=== PATIENT | female | born 1935 | race Caucasian/White ===

== ENCOUNTER 2024-02-23 10:19 | Inpatient (IN) | payer OTHER ==
[2024-02-23 11:51] LABS: HEMATOCRIT 43.3 % (32.4-45.2); HEMOGLOBIN 14.1 GM/dL (10.7-15.3); MCHC 32.5 g/dl (32.0-36.0); MEAN CELL VOLUME 92.1 fl (80-96); MEAN PLT VOLUME 10.6 fl (7.5-11.1); PLATELET COUNT 216 10^3/uL (134-434); RBC 4.71 M/mm3 (3.60-5.2); RDW 14.2 % (11.6-15.6); WHITE BLOOD COUNT 18.2 K/mm3 (4.0-10.0)
[2024-02-23 11:54] LABS: EPI CELLS 5 /uL (0-25.1); HYALINE CASTS 1 /uL (0-3.1); PH,URINE 5.5 (5.0-8.0); URINE APPEARANCE CLEAR; URINE BACTERIA 2 /uL (0-1359); URINE BILIRUBIN NEGATIVE (NEGATIVE); URINE COLOR YELLOW; URINE GLUCOSE (UA) NEGATIVE (NEGATIVE); URINE KETONE NEGATIVE (NEGATIVE); URINE LEUK ESTERASE NEGATIVE (NEGATIVE); URINE NITRITE NEGATIVE (NEGATIVE); URINE PROTEIN 1+ (NEGATIVE); URINE RBC 84 /uL (0-23.9); URINE UROBILINOGEN 0.2 mg/dL (0.2-1.0); URINE WBC 10 /uL (0-25.8)
[2024-02-23 12:00] LABS: INR 1.78 (0.83-1.09); PROTHROMBIN TIME (PATIENT) 19.8 SEC (9.7-13.0)
[2024-02-23 12:03] LABS: ACTIVATED PTT 46.8 SECONDS (25.2-36.5)
[2024-02-23 12:13] LABS: CHLORIDE 96 mmol/L (98-107); SODIUM 143 mmol/L (136-145)
[2024-02-23 12:15] LABS: ALBUMIN 2.7 g/dl (3.4-5.0); BLOOD UREA NITROGEN 24.8 mg/dL (7-18); CALCIUM 8.8 mg/dL (8.5-10.1); CO2 37 mmol/L (21-32); GLUCOSE,RANDOM 164 mg/dL (74-106); MAGNESIUM 1.2 mg/dL (1.8-2.4)
[2024-02-23 12:18] LABS: CREATININE 1.1 mg/dL (0.55-1.3); SGOT/AST 28 U/L (15-37); SGPT/ALT 14 U/L (13-61)
[2024-02-23 12:20] LABS: BILIRUBIN,TOTAL 0.6 mg/dL (0.2-1); TOT PROT 7.7 g/dl (6.4-8.2)
[2024-02-23 12:21] LABS: ALK PHOS 145 U/L (45-117)
[2024-02-23 12:23] LABS: ANION GAP 10 mmol/L (4-13); POTASSIUM 2.6 mmol/L (3.5-5.1)
[2024-02-23] MEDS: MAGNESIUM SULF 50% (8.12 MEQ/2 ML-1 GM VIAL) IVPB ONE (12:30)
[2024-02-23] MEDS ORDERED: MAGNESIUM SULFATE IN WATER 2 GM/50 ML IVPB IVPB ONE (12:34)
[2024-02-23] MEDS ORDERED: POTASSIUM CHLORIDE ORAL LIQUID 20 MEQ/15 ML ONE (12:34)
[2024-02-23 12:38] LABS: ANISOCYTOSIS 0; HELMET CELLS 0; HOWELL-JOLLY BODIES 0; MACROCYTOSIS 0; OVALOCYTE 0; ROULEAU 0; SICKELED CELLS 0; TARGET CELLS 0; TEAR DROP CELLS 0; TOXIC GRANULATION 0
[2024-02-23] MEDS: POTASSIUM CHLORIDE ORAL LIQUID 20 MEQ/15 ML PO ONE (12:40)
[2024-02-23] MEDS: KCL 10 MEQ IVPB 10 MEQ/100 ML INFUS.BAG IVPB SCH (13:00)
[2024-02-23] MEDS: SODIUM CHLORIDE 1,000 ML IV STA (13:00)
[2024-02-23] MEDS ORDERED: KCL 10 MEQ IVPB 10 MEQ/100 ML INFUS.BAG IVPB ONE ×3 (14:23→17:28)
[2024-02-23] MEDS ORDERED: ALBUTEROL SO4 0.083% IH SOL 2.5 MG/3 ML VIAL.NEB. NEB PRN (14:52)
[2024-02-23] MEDS ORDERED: ACETAMINOPHEN 325 MG TABLET (FP) PO PRN (14:52)
[2024-02-23] MEDS: INSULIN ASPART SLIDING SCALE (NOVOLOG) 1 VIAL SQ SCH (17:38)
[2024-02-23] MEDS ORDERED: PATIENT'S OWN MEDICATION (NON-FORMULARY) (Prednisolone Acetate/Pf [Prednisolone Acet 1% Ey OD SCH (18:00)
[2024-02-23 18:56] LABS: POTASSIUM 4.8 mmol/L (3.5-5.1)
[2024-02-23 18:57] LABS: CALCIUM 7.7 mg/dL (8.5-10.1)
[2024-02-23 18:58] LABS: BLOOD UREA NITROGEN 21.8 mg/dL (7-18)
[2024-02-23 19:01] LABS: CREATININE 0.9 mg/dL (0.55-1.3)
[2024-02-23] MEDS: ATORVASTATIN CA 40 MG TABLET (FP) PO SCH (21:56)
[2024-02-23] MEDS: APIXABAN 5 MG TABLET PO SCH (21:57)
[2024-02-23] MEDS ORDERED: PATIENT'S OWN MEDICATION (NON-FORMULARY) (Atropine Sulfate/Pf [Atropine 1% Eye Drops] 1 EA OD SCH (22:00)
[2024-02-23] MEDS ORDERED: TIMOLOL 0.5% OPHTHALMIC SOL 5 ML BOTTLE OD SCH (22:00)
[2024-02-23] MEDS ORDERED: ZINC OXIDE 20% TP SCH (22:00)
[2024-02-23] MEDS: DORZOLAMIDE HCL/TIMOLOL OPHTHALMIC SOLUTION 10 ML BOTTLE OD SCH (22:48)
[2024-02-23] MEDS: prednisoLONE ACETATE 1% OPHTH SUSP 5 ML BOTTLE OD SCH (22:49)
[2024-02-23] MEDS: BRIMONIDINE TARTRATE 0.15% OPHTHALMIC 5 ML BOTTLE OD SCH (22:49)
[2024-02-23] MEDS: ATROPINE SO4 1% OPHTH SOLN 5 ML BOTTLE OD SCH (22:49)
[2024-02-23] MEDS: LIDOCAINE PATCH REMOVAL MC SCH (22:59)
[2024-02-23] MEDS: ZINC OXIDE 20% TOPICAL OINTMENT 30 GM TUBE TP SCH (23:17)
[2024-02-24] MEDS: DORZOLAMIDE 2% HCL OPHTHALMIC SOLUTION 10 ML BOTTLE OD SCH (00:23)
[2024-02-24] MEDS: glipiZIDE-XL 5 MG TAB.ER.24 PO SCH (06:11)
[2024-02-24] MEDS: sitaGLIPtin PHOSPHATE 50 MG TABLET PO SCH (06:11)
[2024-02-24 09:50] LABS: HEMATOCRIT 38.8 % (32.4-45.2); HEMOGLOBIN 12.4 GM/dL (10.7-15.3); MCH 29.7 pg (25.7-33.7); MCHC 32.1 g/dl (32.0-36.0); MEAN CELL VOLUME 92.6 fl (80-96); MEAN PLT VOLUME 10.6 fl (7.5-11.1); RBC 4.19 M/mm3 (3.60-5.2); RDW 14.3 % (11.6-15.6); WHITE BLOOD COUNT 20.5 K/mm3 (4.0-10.0)
[2024-02-24 10:06] LABS: CHLORIDE 102 mmol/L (98-107); SODIUM 146 mmol/L (136-145)
[2024-02-24 10:07] LABS: CALCIUM 8.1 mg/dL (8.5-10.1)
[2024-02-24 10:08] LABS: BLOOD UREA NITROGEN 17.6 mg/dL (7-18); CO2 37 mmol/L (21-32); GLUCOSE,RANDOM 112 mg/dL (74-106); MAGNESIUM 1.4 mg/dL (1.8-2.4)
[2024-02-24 10:10] LABS: CREATININE 0.8 mg/dL (0.55-1.3); PHOSPHOROUS 2.6 mg/dL (2.5-4.9)
[2024-02-24 10:11] LABS: ANION GAP 7 mmol/L (4-13); POTASSIUM 2.5 mmol/L (3.5-5.1)
[2024-02-24] MEDS: amLODIPine BESYLATE 5 MG TABLET (FP) PO SCH (10:17)
[2024-02-24] MEDS: SERTRALINE HCL 50 MG TABLET (FP) PO SCH (10:17)
[2024-02-24] MEDS: PANTOPRAZOLE 40 MG TABLET PO SCH (10:17)
[2024-02-24 10:34] LABS: ANISOCYTOSIS 0; HELMET CELLS 0; HOWELL-JOLLY BODIES 0; MACROCYTOSIS 0; OVALOCYTE 0; ROULEAU 0; SICKELED CELLS 0; TARGET CELLS 0; TEAR DROP CELLS 0; TOXIC GRANULATION 0
[2024-02-24 10:36] LABS: PLATELET COUNT 189 10^3/uL (134-434)
[2024-02-24 10:50] LABS: ALLENS TEST POSITIVE; ARTERIAL BLD GAS O2 SATURATION 95.8 % (95-98); ARTERIAL BLOOD GAS BASE EXCESS 7.1 mmol/L (-2-2); ARTERIAL BLOOD GAS PO2 86.3 mmHg (80-100); ARTERIAL BLOOD GAS pH 7.348 (7.350-7.450)
[2024-02-24] MEDS: LIDOCAINE 4% PATCH TP SCH (11:19)
[2024-02-24] MEDS: POTASSIUM CHLORIDE ORAL LIQUID 20 MEQ/15 ML PO ONE (11:25)
[2024-02-24] MEDS: KCL 10 MEQ IVPB 10 MEQ/100 ML INFUS.BAG IVPB SCH ×2 (11:25→21:23)
[2024-02-24] MEDS: VANCOMYCIN ORAL SOLUTION 125 MG/2.5 ML PO SCH (14:21)
[2024-02-24] MEDS ORDERED: VANCOMYCIN ORAL SOLUTION 125 MG/2.5 ML PO SCH (18:00)
[2024-02-24 20:52] LABS: POTASSIUM 2.5 mmol/L (3.5-5.1)
[2024-02-25 04:56] LABS: HEMATOCRIT 36.7 % (32.4-45.2); HEMOGLOBIN 11.9 GM/dL (10.7-15.3); MCH 29.8 pg (25.7-33.7); MCHC 32.4 g/dl (32.0-36.0); MEAN PLT VOLUME 9.8 fl (7.5-11.1); PLATELET COUNT 179 10^3/uL (134-434); RBC 3.99 M/mm3 (3.60-5.2); RDW 14.5 % (11.6-15.6); WHITE BLOOD COUNT 25.6 K/mm3 (4.0-10.0)
[2024-02-25 05:13] LABS: CHLORIDE 101 mmol/L (98-107); SODIUM 144 mmol/L (136-145)
[2024-02-25 05:15] LABS: CALCIUM 7.8 mg/dL (8.5-10.1); CO2 35 mmol/L (21-32)
[2024-02-25 05:16] LABS: BLOOD UREA NITROGEN 15.6 mg/dL (7-18); GLUCOSE,RANDOM 221 mg/dL (74-106)
[2024-02-25 05:18] LABS: CREATININE 0.9 mg/dL (0.55-1.3)
[2024-02-25 06:04] LABS: ANION GAP 8 mmol/L (4-13); POTASSIUM 2.9 mmol/L (3.5-5.1)
[2024-02-25 06:49] LABS: ANISOCYTOSIS 1+; MACROCYTOSIS 0; OVALOCYTE 1+
[2024-02-25] MEDS: KCL 10 MEQ IVPB 10 MEQ/100 ML INFUS.BAG IVPB SCH (07:00)
[2024-02-25] MEDS: POTASSIUM CHLORIDE ORAL LIQUID 20 MEQ/15 ML PO ONE ×2 (07:00→10:45)
[2024-02-25 10:24] LABS: HEMATOCRIT 38.4 % (32.4-45.2); HEMOGLOBIN 12.3 GM/dL (10.7-15.3); MCH 29.5 pg (25.7-33.7); MCHC 32.1 g/dl (32.0-36.0); MEAN PLT VOLUME 10.3 fl (7.5-11.1); PLATELET COUNT 188 10^3/uL (134-434); RBC 4.17 M/mm3 (3.60-5.2); RDW 14.5 % (11.6-15.6); WHITE BLOOD COUNT 23.4 K/mm3 (4.0-10.0)
[2024-02-25 10:42] LABS: POTASSIUM 3.6 mmol/L (3.5-5.1)
[2024-02-25 10:51] LABS: ALBUMIN 2.3 g/dl (3.4-5.0); CALCIUM 8.1 mg/dL (8.5-10.1); MAGNESIUM 1.1 mg/dL (1.8-2.4)
[2024-02-25 10:54] LABS: CREATININE 0.9 mg/dL (0.55-1.3)
[2024-02-25 10:56] LABS: BILIRUBIN,TOTAL 0.4 mg/dL (0.2-1)
[2024-02-25 10:57] LABS: TOT PROT 6.3 g/dl (6.4-8.2)
[2024-02-25 11:15] LABS: ANISOCYTOSIS 0; MACROCYTOSIS 0
[2024-02-25] MEDS: MAGNESIUM 2GM/50ML STERILE WATER IVPB IVPB ONE ×2 (11:58→17:08)
[2024-02-25 16:39] VITALS: BMI 24.6
[2024-02-25] MEDS: BANATROL PLUS POWDER PACKET PO SCH (23:06)
[2024-02-26] MEDS: VANCOMYCIN 250 MG/5 ML ORAL SOLUTION (RESTRICTED TO ID ONLY) PO SCH (06:41)
[2024-02-26 08:24] LABS: HEMATOCRIT 38.3 % (32.4-45.2); HEMOGLOBIN 12.5 GM/dL (10.7-15.3); MCHC 32.7 g/dl (32.0-36.0); MEAN CELL VOLUME 91.8 fl (80-96); MEAN PLT VOLUME 9.9 fl (7.5-11.1); PLATELET COUNT 192 10^3/uL (134-434); RBC 4.17 M/mm3 (3.60-5.2); RDW 14.8 % (11.6-15.6); WHITE BLOOD COUNT 19.9 K/mm3 (4.0-10.0)
[2024-02-26 08:37] LABS: ALBUMIN 2.4 g/dl (3.4-5.0); BLOOD UREA NITROGEN 15.3 mg/dL (7-18); CALCIUM 8.3 mg/dL (8.5-10.1); MAGNESIUM 2.1 mg/dL (1.8-2.4)
[2024-02-26 08:40] LABS: CREATININE 0.8 mg/dL (0.55-1.3); PHOSPHOROUS 2.6 mg/dL (2.5-4.9)
[2024-02-26 08:42] LABS: BILIRUBIN,TOTAL 0.5 mg/dL (0.2-1); TOT PROT 6.3 g/dl (6.4-8.2)
[2024-02-26 09:17] LABS: ANISOCYTOSIS 2+; MACROCYTOSIS 0; OVALOCYTE 1+
[2024-02-26] MEDS ORDERED: MAGNESIUM SULF 50% (8.12 MEQ/2 ML-1 GM VIAL) IVPB ONE (09:57)
[2024-02-26] MEDS: ZINC OXIDE 20% TOPICAL OINTMENT 30 GM TUBE TP SCH (11:43)
[2024-02-26] MEDS: POTASSIUM CHLORIDE ORAL LIQUID 20 MEQ/15 ML PO ONE (14:38)
[2024-02-26] MEDS: MAGNESIUM 2GM/50ML STERILE WATER IVPB IVPB ONE (14:40)
[2024-02-26] MEDS ORDERED: ATORVASTATIN CA 20 MG TABLET (FP) ONE (22:15)
[2024-02-27 07:30] LABS: HEMATOCRIT 38.3 % (32.4-45.2); HEMOGLOBIN 12.2 GM/dL (10.7-15.3); MCH 29.6 pg (25.7-33.7); MCHC 31.8 g/dl (32.0-36.0); MEAN CELL VOLUME 93.2 fl (80-96); MEAN PLT VOLUME 9.9 fl (7.5-11.1); PLATELET COUNT 167 10^3/uL (134-434); RBC 4.11 M/mm3 (3.60-5.2); RDW 14.4 % (11.6-15.6); WHITE BLOOD COUNT 24.4 K/mm3 (4.0-10.0)
[2024-02-27 07:44] LABS: ALBUMIN 2.1 g/dl (3.4-5.0); BLOOD UREA NITROGEN 17.7 mg/dL (7-18); MAGNESIUM 2.3 mg/dL (1.8-2.4)
[2024-02-27 07:47] LABS: CREATININE 0.8 mg/dL (0.55-1.3); PHOSPHOROUS 2.6 mg/dL (2.5-4.9)
[2024-02-27 07:49] LABS: BILIRUBIN,TOTAL 0.4 mg/dL (0.2-1)
[2024-02-27] MEDS ORDERED: POTASSIUM CHLORIDE ORAL LIQUID 20 MEQ/15 ML PO ONE (08:40)
[2024-02-27 09:32] LABS: ANISOCYTOSIS 0; MACROCYTOSIS 0; OVALOCYTE 1+
[2024-02-27] MEDS: POTASSIUM CHLORIDE ORAL LIQUID 20 MEQ/15 ML PO ONE (10:55)
[2024-02-27] MEDS: VANCOMYCIN 250 MG/5 ML ORAL SOLUTION (RESTRICTED TO ID ONLY) PO SCH (17:52)
[2024-02-27] MEDS: LACTOBACILLUS ACIDOPHILUS 1 TABLET PO SCH (21:46)
[2024-02-27] MEDS: MELATONIN 5 MG TABLETS PO PRN (23:45)
[2024-02-28 07:57] LABS: CHLORIDE 102 mmol/L (98-107); SODIUM 142 mmol/L (136-145)
[2024-02-28 07:58] LABS: POTASSIUM 2.8 mmol/L (3.5-5.1)
[2024-02-28 08:01] LABS: HEMATOCRIT 36.7 % (32.4-45.2); HEMOGLOBIN 11.8 GM/dL (10.7-15.3); MCH 30.1 pg (25.7-33.7); MCHC 32.1 g/dl (32.0-36.0); MEAN CELL VOLUME 93.6 fl (80-96); MEAN PLT VOLUME 9.7 fl (7.5-11.1); PLATELET COUNT 145 10^3/uL (134-434); RBC 3.93 M/mm3 (3.60-5.2); RDW 14.4 % (11.6-15.6); WHITE BLOOD COUNT 22.1 K/mm3 (4.0-10.0)
[2024-02-28 08:03] LABS: ALBUMIN 2.1 g/dl (3.4-5.0); ANION GAP 6 mmol/L (4-13); BLOOD UREA NITROGEN 16.6 mg/dL (7-18); CALCIUM 8.1 mg/dL (8.5-10.1); CO2 33 mmol/L (21-32); GLUCOSE,RANDOM 212 mg/dL (74-106); MAGNESIUM 1.8 mg/dL (1.8-2.4)
[2024-02-28 08:06] LABS: CREATININE 0.8 mg/dL (0.55-1.3); PHOSPHOROUS 2.8 mg/dL (2.5-4.9); SGOT/AST 13 U/L (15-37); SGPT/ALT 8 U/L (13-61)
[2024-02-28 08:07] LABS: BILIRUBIN,TOTAL 0.4 mg/dL (0.2-1); TOT PROT 5.6 g/dl (6.4-8.2)
[2024-02-28 08:51] LABS: ANISOCYTOSIS 0; MACROCYTOSIS 0
[2024-02-28 09:04] LABS: ALK PHOS 99 U/L (45-117)
[2024-02-28] MEDS: POTASSIUM CHLORIDE TABS 20 MEQ TABLET.ER (FP) PO ONE (10:11)
[2024-02-28 17:49] LABS: CALCIUM 8.1 mg/dL (8.5-10.1); POTASSIUM 3.1 mmol/L (3.5-5.1)
[2024-02-28 17:54] LABS: CREATININE 0.8 mg/dL (0.55-1.3)
[2024-02-29] MEDS: POTASSIUM CHLORIDE ORAL LIQUID 20 MEQ/15 ML PO ONE (02:23)
[2024-02-29] MEDS: KCL 10 MEQ IVPB 10 MEQ/100 ML INFUS.BAG IVPB SCH (03:12)
[2024-02-29 07:20] LABS: HEMATOCRIT 38.4 % (32.4-45.2); HEMOGLOBIN 12.2 GM/dL (10.7-15.3); MCH 29.5 pg (25.7-33.7); MCHC 31.7 g/dl (32.0-36.0); MEAN CELL VOLUME 93.2 fl (80-96); PLATELET COUNT 164 10^3/uL (134-434); RBC 4.12 M/mm3 (3.60-5.2); RDW 14.7 % (11.6-15.6); WHITE BLOOD COUNT 27.9 K/mm3 (4.0-10.0)
[2024-02-29 07:39] LABS: ALBUMIN 2.2 g/dl (3.4-5.0); BLOOD UREA NITROGEN 16.4 mg/dL (7-18); CALCIUM 8.2 mg/dL (8.5-10.1); MAGNESIUM 1.3 mg/dL (1.8-2.4)
[2024-02-29 07:42] LABS: BILIRUBIN,TOTAL 0.4 mg/dL (0.2-1); CREATININE 0.8 mg/dL (0.55-1.3); PHOSPHOROUS 2.3 mg/dL (2.5-4.9)
[2024-02-29 08:54] LABS: ANISOCYTOSIS 0; MACROCYTOSIS 0
[2024-02-29] MEDS: POTASSIUM CHLORIDE ORAL LIQUID 20 MEQ/15 ML PO SCH (10:58)
[2024-02-29] MEDS: BANATROL PLUS POWDER PACKET PO SCH (14:49)
[2024-02-29] MEDS: MAGNESIUM SULF 50% (8.12 MEQ/2 ML-1 GM VIAL) IVPB SCH ×2 (17:44→21:41)
[2024-02-29] MEDS: POTASSIUM PHOSPHATE 30 MM in SODIUM CHLORIDE 500 ML IVPB ONE (19:17)
[2024-02-29] MEDS: MECLIZINE HCL 12.5 MG TABLET PO PRN (21:13)
[2024-03-01 07:54] LABS: HEMATOCRIT 38.6 % (32.4-45.2); HEMOGLOBIN 12.6 GM/dL (10.7-15.3); MCH 29.9 pg (25.7-33.7); MCHC 32.6 g/dl (32.0-36.0); MEAN CELL VOLUME 91.6 fl (80-96); MEAN PLT VOLUME 9.5 fl (7.5-11.1); PLATELET COUNT 169 10^3/uL (134-434); RBC 4.22 M/mm3 (3.60-5.2); RDW 14.8 % (11.6-15.6)
[2024-03-01 07:59] LABS: CHLORIDE 105 mmol/L (98-107); SODIUM 145 mmol/L (136-145)
[2024-03-01 08:06] LABS: ALBUMIN 2.1 g/dl (3.4-5.0); CALCIUM 7.9 mg/dL (8.5-10.1)
[2024-03-01 08:07] LABS: BLOOD UREA NITROGEN 13.5 mg/dL (7-18); CO2 33 mmol/L (21-32); GLUCOSE,RANDOM 226 mg/dL (74-106); MAGNESIUM 2.5 mg/dL (1.8-2.4)
[2024-03-01 08:09] LABS: CREATININE 0.6 mg/dL (0.55-1.3); SGOT/AST 15 U/L (15-37); SGPT/ALT 11 U/L (13-61)
[2024-03-01 08:10] LABS: PHOSPHOROUS 3.4 mg/dL (2.5-4.9)
[2024-03-01 08:11] LABS: BILIRUBIN,TOTAL 0.5 mg/dL (0.2-1)
[2024-03-01 08:12] LABS: ALK PHOS 101 U/L (45-117)
[2024-03-01 08:32] LABS: ANION GAP 8 mmol/L (4-13); POTASSIUM 2.8 mmol/L (3.5-5.1)
[2024-03-01 10:05] LABS: ANISOCYTOSIS 0; MACROCYTOSIS 0; OVALOCYTE 1+
[2024-03-01] MEDS: LIDOCAINE 4% PATCH TP SCH (10:22)
[2024-03-01] MEDS: POTASSIUM CHLORIDE ORAL LIQUID 20 MEQ/15 ML PO SCH (13:20)
[2024-03-01] MEDS: KCL 10 MEQ IVPB 10 MEQ/100 ML INFUS.BAG IVPB SCH (13:20)
[2024-03-01] MEDS: FIDAXOMICIN 200 MG TABLET PO SCH (16:10)
[2024-03-02 07:58] LABS: HEMATOCRIT 37.8 % (32.4-45.2); HEMOGLOBIN 11.7 GM/dL (10.7-15.3); MCH 29.3 pg (25.7-33.7); MCHC 31.1 g/dl (32.0-36.0); MEAN CELL VOLUME 94.2 fl (80-96); MEAN PLT VOLUME 9.8 fl (7.5-11.1); PLATELET COUNT 163 10^3/uL (134-434); RBC 4.01 M/mm3 (3.60-5.2); RDW 14.7 % (11.6-15.6)
[2024-03-02 08:16] LABS: POTASSIUM 4.7 mmol/L (3.5-5.1)
[2024-03-02 08:19] LABS: CALCIUM 8.3 mg/dL (8.5-10.1); MAGNESIUM 1.7 mg/dL (1.8-2.4)
[2024-03-02 08:21] LABS: CREATININE 0.7 mg/dL (0.55-1.3)
[2024-03-02 08:24] LABS: BILIRUBIN,TOTAL 0.4 mg/dL (0.2-1); TOT PROT 5.5 g/dl (6.4-8.2)
[2024-03-02 08:40] LABS: WHITE BLOOD COUNT 36.5 K/mm3 (4.0-10.0)
[2024-03-02 09:41] LABS: ANISOCYTOSIS 0; MACROCYTOSIS 0
[2024-03-02] MEDS: NAPH,MB-DB/K PH,MBDB POWDER PACKET PO ONE (10:36)
[2024-03-02] MEDS: MAGNESIUM 2GM/50ML STERILE WATER IVPB IVPB ONE (10:38)
[2024-03-02] MEDS: VANCOMYCIN 250 MG/5 ML ORAL SOLUTION (RESTRICTED TO ID ONLY) PO SCH (13:31)
[2024-03-02] MEDS: ACETAMINOPHEN 1000 MG/100 ML BAG IVPB ONE (14:07)
[2024-03-02] MEDS: SODIUM PHOSPHATE - 30 MM in SODIUM CHLORIDE 500 ML IVPB ONE (14:41)
[2024-03-03 08:10] LABS: HEMATOCRIT 35.9 % (32.4-45.2); HEMOGLOBIN 11.3 GM/dL (10.7-15.3); MCH 29.7 pg (25.7-33.7); MCHC 31.4 g/dl (32.0-36.0); MEAN CELL VOLUME 94.4 fl (80-96); MEAN PLT VOLUME 10.4 fl (7.5-11.1); PLATELET COUNT 174 10^3/uL (134-434); RDW 14.9 % (11.6-15.6)
[2024-03-03 08:21] LABS: POTASSIUM 4.3 mmol/L (3.5-5.1)
[2024-03-03 08:29] LABS: ALBUMIN 1.9 g/dl (3.4-5.0); BLOOD UREA NITROGEN 11.8 mg/dL (7-18); CALCIUM 7.9 mg/dL (8.5-10.1); MAGNESIUM 1.7 mg/dL (1.8-2.4)
[2024-03-03 08:31] LABS: WHITE BLOOD COUNT 34.8 K/mm3 (4.0-10.0)
[2024-03-03 08:32] LABS: CREATININE 0.6 mg/dL (0.55-1.3); PHOSPHOROUS 3.3 mg/dL (2.5-4.9)
[2024-03-03 08:34] LABS: BILIRUBIN,TOTAL 0.5 mg/dL (0.2-1); TOT PROT 5.6 g/dl (6.4-8.2)
[2024-03-03] MEDS: MAGNESIUM 2GM/50ML STERILE WATER IVPB IVPB ONE (09:32)
[2024-03-03 09:50] LABS: ANISOCYTOSIS 0; MACROCYTOSIS 0
[2024-03-03] MEDS ORDERED: MAGNESIUM SULF 50% (8.12 MEQ/2 ML-1 GM VIAL) IVPB ONE (10:15)
[2024-03-03] MEDS: ACETAMINOPHEN 1000 MG/100 ML BAG IVPB PRN (11:23)
[2024-03-03] MEDS: FAMOTIDINE 20 MG/50 ML IVPB 20 MG/50 ML MG IVPB SCH (14:27)
[2024-03-03] MEDS: VANCOMYCIN 500 MG VIAL (RESTRICTED TO ID ONLY) RC SCH (16:21)
[2024-03-03] MEDS: morphine CARPU-JECT 4 MG/1 ML DISP.SYRIN IVPUSH ONE (17:10)
[2024-03-04 09:02] LABS: MCHC 31.4 g/dl (32.0-36.0); MEAN CELL VOLUME 92.3 fl (80-96); MEAN PLT VOLUME 10.1 fl (7.5-11.1); PLATELET COUNT 198 10^3/uL (134-434); RBC 3.79 M/mm3 (3.60-5.2); RDW 15.2 % (11.6-15.6)
[2024-03-04 09:19] LABS: ALBUMIN 1.8 g/dl (3.4-5.0); CALCIUM 7.9 mg/dL (8.5-10.1)
[2024-03-04 09:20] LABS: BLOOD UREA NITROGEN 13.7 mg/dL (7-18); MAGNESIUM 1.7 mg/dL (1.8-2.4)
[2024-03-04 09:22] LABS: CREATININE 0.6 mg/dL (0.55-1.3); PHOSPHOROUS 2.4 mg/dL (2.5-4.9)
[2024-03-04 09:23] LABS: BILIRUBIN,TOTAL 0.4 mg/dL (0.2-1); TOT PROT 5.1 g/dl (6.4-8.2)
[2024-03-04] MEDS: KCL 10 MEQ IVPB 10 MEQ/100 ML INFUS.BAG IVPB SCH (10:03)
[2024-03-04 11:56] LABS: ANISOCYTOSIS 1+; MACROCYTOSIS 0; OVALOCYTE 1+; TEAR DROP CELLS 0
[2024-03-04 11:58] LABS: PLATELET ESTIMATE ADEQUATE
[2024-03-04] MEDS ORDERED: NAPH,MB-DB/K PH,MBDB POWDER PACKET PO ONE (14:29)
[2024-03-04] MEDS ORDERED: AMINO ACIDS 4.25%/D5W 1,000 ML IV SCH (15:15)
[2024-03-04] MEDS: MAGNESIUM 2GM/50ML STERILE WATER IVPB IVPB ONE (15:16)
[2024-03-04] MEDS: POTASSIUM PHOSPHATE 15 MM in SODIUM CHLORIDE 250 ML IVPB ONE (17:20)
[2024-03-04] MEDS: ACETAMINOPHEN 1000 MG/100 ML BAG IVPB PRN (18:06)
[2024-03-04] MEDS: POTASSIUM CHLORIDE 20 MEQ in AMINO ACIDS 4.25%/D5W 1,000 ML IV SCH (19:14)
[2024-03-05] MEDS: SODIUM CHLORIDE 1,000 ML IV STA
[2024-03-05 01:00] LABS: HEMATOCRIT 35.7 % (32.4-45.2); HEMOGLOBIN 10.8 GM/dL (10.7-15.3); MCHC 30.2 g/dl (32.0-36.0); MEAN PLT VOLUME 10.8 fl (7.5-11.1); PLATELET COUNT 170 10^3/uL (134-434); RBC 3.72 M/mm3 (3.60-5.2); RDW 15.8 % (11.6-15.6)
[2024-03-05 01:17] LABS: ARTERIAL BLD GAS O2 SATURATION 83.4 % (95-98); ARTERIAL BLOOD GAS BASE EXCESS -14.8 mmol/L (-2-2); ARTERIAL BLOOD GAS PO2 71.7 mmHg (80-100)
[2024-03-05 01:19] LABS: ALLENS TEST POSITIVE
[2024-03-05 01:43] LABS: ARTERIAL BLOOD GAS pH 6.988 (7.350-7.450)
[2024-03-05] MEDS ORDERED: PROPOFOL 1,000,000 MCG/100 ML VIAL ONE (01:56)
[2024-03-05] MEDS: NOREPINEPHRINE BITARTRATE 4,000 MCG in DEXTROSE 5%-WATER - 496 ML IV SCH (02:58)
[2024-03-05] MEDS: PROPOFOL 1,000,000 MCG/100 ML VIAL IVPB SCH (02:59)
[2024-03-05] MEDS: SODIUM BICARBONATE 8.4% - 150 MEQ in DEXTROSE 5%-WATER - 950 ML IVPB SCH (02:59)
[2024-03-05 03:24] LABS: HEMATOCRIT 30.3 % (32.4-45.2); HEMOGLOBIN 9.5 GM/dL (10.7-15.3); MCH 29.6 pg (25.7-33.7); MCHC 31.3 g/dl (32.0-36.0); MEAN CELL VOLUME 94.8 fl (80-96); MEAN PLT VOLUME 10.8 fl (7.5-11.1); PLATELET COUNT 133 10^3/uL (134-434); RDW 15.7 % (11.6-15.6); WHITE BLOOD COUNT 28.4 K/mm3 (4.0-10.0)
[2024-03-05 03:42] LABS: ACTIVATED PTT 57.3 SECONDS (25.2-36.5)
[2024-03-05 03:45] LABS: POTASSIUM 3.7 mmol/L (3.5-5.1)
[2024-03-05 03:48] LABS: CALCIUM 7.3 mg/dL (8.5-10.1); MAGNESIUM 2.3 mg/dL (1.8-2.4)
[2024-03-05 03:51] LABS: CREATININE 1.4 mg/dL (0.55-1.3); PHOSPHOROUS 7.7 mg/dL (2.5-4.9)
[2024-03-05 03:53] LABS: BILIRUBIN,TOTAL 0.9 mg/dL (0.2-1); TOT PROT 4.5 g/dl (6.4-8.2)
[2024-03-05 03:54] LABS: N-TERMINAL BNP 5056.1 pg/ml (5-450)
[2024-03-05 04:00] LABS: LACTIC ACID 12.5 mmol/L (0.4-2.0)
[2024-03-05 04:10] LABS: ALBUMIN 1.4 g/dl (3.4-5.0)
[2024-03-05] MEDS: PIPERACILLIN/TAZOB 3.375 GM 3.375 GM in DEXTROSE 5%-WATER - 50 ML IVPB SCH (04:29)
[2024-03-05] MEDS: ENOXAPARIN NA (PORCINE) 60 MG/0.6 ML DISP.SYRIN SQ SCH (04:29)
[2024-03-05] MEDS: VANCOMYCIN/WATER FOR INJ (PEG) 1,000 MG/200 ML BAG IVPB SCH (04:29)
[2024-03-05 05:17] LABS: PROTHROMBIN TIME (PATIENT) 155.8 SEC (9.7-13.0)
[2024-03-05 05:20] LABS: INR 14.65 (0.83-1.09)
[2024-03-05 05:39] LABS: HEMATOCRIT 30.8 % (32.4-45.2); HEMOGLOBIN 9.5 GM/dL (10.7-15.3); MCH 29.4 pg (25.7-33.7); MEAN CELL VOLUME 94.9 fl (80-96); MEAN PLT VOLUME 10.6 fl (7.5-11.1); PLATELET COUNT 130 10^3/uL (134-434); RBC 3.24 M/mm3 (3.60-5.2); RDW 15.4 % (11.6-15.6)
[2024-03-05 05:58] LABS: POTASSIUM 3.7 mmol/L (3.5-5.1)
[2024-03-05 06:01] LABS: BLOOD UREA NITROGEN 28.1 mg/dL (7-18); CALCIUM 7.2 mg/dL (8.5-10.1); MAGNESIUM 2.3 mg/dL (1.8-2.4)
[2024-03-05 06:04] LABS: WHITE BLOOD COUNT 32.1 K/mm3 (4.0-10.0)
[2024-03-05 06:05] LABS: BILIRUBIN,TOTAL 1.1 mg/dL (0.2-1); CREATININE 1.5 mg/dL (0.55-1.3); TOT PROT 4.5 g/dl (6.4-8.2)
[2024-03-05 06:10] LABS: ALBUMIN 1.5 g/dl (3.4-5.0); LACTIC ACID 13.2 mmol/L (0.4-2.0)
[2024-03-05 06:10] LABS: ANISOCYTOSIS 3+; MACROCYTOSIS 3+; ROULEAU 2+
[2024-03-05 06:56] LABS: ARTERIAL BLD GAS O2 SATURATION 99.7 % (95-98); ARTERIAL BLOOD GAS BASE EXCESS -8.8 mmol/L (-2-2); ARTERIAL BLOOD GAS PO2 283.8 mmHg (80-100); ARTERIAL BLOOD GAS pH 7.372 (7.350-7.450)
[2024-03-05 07:08] LABS: ALLENS TEST POSITIVE; VENT MODE A/C
[2024-03-05 07:09] LABS: VENT RATE 28
[2024-03-05] MEDS: PHYTONADIONE 10 MG/1 ML AMP IVPB ONE (08:39)
[2024-03-05] MEDS: FENTANYL NS IVPB 500 MCG/100 ML BAG IVPB SCH (10:44)
[2024-03-05] MEDS: PANTOPRAZOLE SODIUM 40 MG VIAL IVPUSH SCH (10:45)
[2024-03-05] MEDS: MUPIROCIN 2% TOPICAL OINTMENT FOR DECOLONIZATION NS SCH (10:45)
[2024-03-05] MEDS: KCL 20 MEQ PREMIX BAG 20 MEQ/100 ML INFUS.BAG IVPB SCH (11:42)
[2024-03-05] MEDS: NOREPINEPHRINE 0.9 % NACL 8 MG/250 ML BAG IVPB SCH (11:45)
[2024-03-05 11:59] VITALS: PULSE 125; RESP 28
[2024-03-05] MEDS: morphine SULFATE 4 MG/ML VIAL IVPUSH ONE (12:00)
[2024-03-05 12:03] VITALS: BP 86/56; TEMP 98.9
[2024-03-05] MEDS: MORPHINE SULFATE/0.9% NACL/PF 100 MG/100 ML BAG IVPB SCH (12:20)
[2024-03-05] MEDS ORDERED: CHLORHEXIDINE GLUCONATE 4% CLEANSER FOR DECOLONIZATION TP SCH (22:00)
[2024-03-06] MEDS ORDERED: PIPERACILLIN/TAZOB 3.375 GM 3.375 GM in DEXTROSE 5%-WATER - 50 ML IVPB SCH (03:00)
[2024-03-06] MEDS ORDERED: VANCOMYCIN/WATER FOR INJ (PEG) 1,000 MG/200 ML BAG IVPB SCH (03:00)
== END 2024-03-05 15:30 | disposition expired | DRG 371 ==
LOC: JER 10:19 → JERBED 12:04 → J4W 20:30 → JICU 03-05 01:53
PROVIDERS: ADMIT Internal Medicine; ATTEND Internal Medicine Pulmonary Disease
PROC: 06HM33Z Insertion of Infusion Device into Right Femoral Vein, Percutaneous Approach (ICD-10-PCS; principal; 2024-03-05)
PROC: 5A1935Z Respiratory Ventilation, Less than 24 Consecutive Hours (ICD-10-PCS; 2024-03-05)
PROC: 0BH17EZ Insertion of Endotracheal Airway into Trachea, Via Natural or Artificial Opening (ICD-10-PCS; 2024-03-05)
PROC: B54BZZA Ultrasonography of Right Lower Extremity Veins, Guidance (ICD-10-PCS; 2024-03-05)
DX: A04.72 Enterocolitis due to Clostridium difficile, not specified as recurrent (principal); A41.9 Sepsis, unspecified organism; J96.01 Acute respiratory failure with hypoxia; K72.00 Acute and subacute hepatic failure without coma; R65.21 Severe sepsis with septic shock; E87.0 Hyperosmolality and hypernatremia; E87.20 Acidosis, unspecified; N17.9 Acute kidney failure, unspecified; E87.6 Hypokalemia; I25.10 Atherosclerotic heart disease of native coronary artery without angina pectoris; I10 Essential (primary) hypertension; E11.9 Type 2 diabetes mellitus without complications; I25.2 Old myocardial infarction; E83.42 Hypomagnesemia; K21.9 Gastro-esophageal reflux disease without esophagitis; F32.9 Major depressive disorder, single episode, unspecified; N83.202 Unspecified ovarian cyst, left side; K57.90 Diverticulosis of intestine, part unspecified, without perforation or abscess without bleeding; R33.8 Other retention of urine
CPT/HCPCS: 0241U-QW; 36415; 36600; 71045-TC-FY; 71250-TC; 74018-TC-FY; 74176-TC; 74230-TC-FY; 80048; 80053; 81003; 82272; 82803; 82962; 83605; 83735; 83880; 84100; 84132; 84484; 85025; 85027; 85610; 85730; 86140; 87040; 87045; 87046; 87086; 87186; 87205; 87324; 87449; 92611-GN; 93005; 93010; 93306-TC; 94002; 97116-GP; 97162-GP; 99285-25; J0131